=== PATIENT | female | born 1960 | race African-American/Black ===

== ENCOUNTER 2019-07-31 09:46 | Emergency (ER) | payer MEDICAID ==
[~2019-07-31] VITALS: Ht 154.9 cm; Wt 79.3 kg
[2019-07-31 10:25] VITALS: BP 144/98
[2019-07-31] MEDS ORDERED: acetaminophen w/codeine (30MG) #3 tablet PO ONE (11:00)
[2019-07-31] MEDS ORDERED: ACET-3068 PO (11:07)
[2019-07-31] MEDS ORDERED: IBUP-1984 PO (11:07)
== END 2019-07-31 12:45 | disposition home or self-care (01) ==
LOC: ER 09:46
DX: J11.1 Influenza due to unidentified influenza virus with other respiratory manifestations (principal); B34.9 Viral infection, unspecified; F17.200 Nicotine dependence, unspecified, uncomplicated; Z98.890 Other specified postprocedural states; Z88.8 Allergy status to other drugs, medicaments and biological substances; Z79.899 Other long term (current) drug therapy
CPT/HCPCS: 71046; 87502; 87503; 99284

== ENCOUNTER 2020-10-11 19:57 | Emergency (ER) | payer MEDICAID ==
[~2020-10-11] VITALS: Ht 165.1 cm; Wt 77.3 kg
[2020-10-11 20:19] VITALS: BP 171/97
--- NOTE | 2020-10-11 21:14 | NUR ---
PT IS 60 YO FEMALE C/O LEFT LOWER BACK PAIN AND RASH X1 ONE WEEK, BLISTERS ON RASH X1 DAY, PAIN 7/10, WAITING TO BE EVALUATED BY PROVIDER
[2020-10-11] MEDS ORDERED: GABA-530 PO (21:41)
[2020-10-11] MEDS ORDERED: VALA100031 PO (21:41)
== END 2020-10-11 22:02 | disposition home or self-care (01) ==
LOC: ER 19:58
DX: B02.9 Zoster without complications (principal); Z98.890 Other specified postprocedural states; Z88.6 Allergy status to analgesic agent; Z79.2 Long term (current) use of antibiotics; Z79.899 Other long term (current) drug therapy
CPT/HCPCS: 99283

== ENCOUNTER 2020-12-31 12:18 | Emergency (ER) | payer BC, MEDICAID ==
[~2020-12-31] VITALS: Ht 162.6 cm; Wt 78.2 kg
[~2020-12-31 12:18] MED LIST: GABA-530 PO; VALA100031 PO
[2020-12-31 12:59] VITALS: BP 160/107
[2020-12-31] MEDS ORDERED: PRED20TA PO (13:56)
[2020-12-31] MEDS ORDERED: DIPH-423 PO (13:56)
== END 2020-12-31 14:15 | disposition home or self-care (01) ==
LOC: ER 12:19
DX: S60.562A Insect bite (nonvenomous) of left hand, initial encounter (principal); S60.561A Insect bite (nonvenomous) of right hand, initial encounter; S40.862A Insect bite (nonvenomous) of left upper arm, initial encounter; S40.861A Insect bite (nonvenomous) of right upper arm, initial encounter; Z88.6 Allergy status to analgesic agent; Z79.899 Other long term (current) drug therapy; W57.XXXA Bitten or stung by nonvenomous insect and other nonvenomous arthropods, initial encounter; Y93.89 Activity, other specified; Y92.89 Other specified places as the place of occurrence of the external cause; Y99.8 Other external cause status
CPT/HCPCS: 99283

== ENCOUNTER 2022-07-17 14:58 | Emergency (ER) | payer BC ==
[~2022-07-17] VITALS: Ht 165.1 cm; Wt 69.5 kg
[~2022-07-17 14:58] MED LIST changes: +DIPH-423 PO
[2022-07-17 15:47] VITALS: BP 168/103
[2022-07-17] MEDS ORDERED: cyclobenzaprine 10mg tablet PO ONE (17:25)
[2022-07-17] MEDS ORDERED: ketorolac trometh inj. 60 MG/2 ML VIAL IM ONE (17:25)
[2022-07-17] MEDS ORDERED: CYCL-1 PO (17:29)
[2022-07-17] MEDS ORDERED: IBUP-1986 PO (17:29)
[2022-07-17] MEDS ORDERED: LIDO700A32 TOP (17:29)
[2022-07-17] MEDS ORDERED: ketorolac trometh. 30mg/ml inj. IM ONE (17:40)
[2022-07-18] MEDS ORDERED: TRAM50TA2 PO (20:20)
== END 2022-07-17 18:20 | disposition home or self-care (01) ==
LOC: ER 14:59
DX: S29.012A Strain of muscle and tendon of back wall of thorax, initial encounter (principal); Z88.6 Allergy status to analgesic agent; Z88.1 Allergy status to other antibiotic agents; Z88.8 Allergy status to other drugs, medicaments and biological substances; X58.XXXA Exposure to other specified factors, initial encounter; Y93.89 Activity, other specified; Y92.89 Other specified places as the place of occurrence of the external cause; Y99.8 Other external cause status
CPT/HCPCS: 96372; 99283; J1885

== ENCOUNTER → 2022-07-18 | Emergency (ER) | payer BC ==
[~2022-07-18] VITALS: Ht 165.1 cm; Wt 68.0 kg
[~2022-07-18] MED LIST changes: +CYCL-1 PO; +IBUP-1986 PO; +LIDO700A32 TOP; +TRAM50TA2 PO; +traMADol 50MG tablet PO ONE
[2022-07-18 17:43] VITALS: BP 161/100
== END | disposition home or self-care (01) ==
LOC: ER 17:39
DX: S29.012D Strain of muscle and tendon of back wall of thorax, subsequent encounter (principal); R07.89 Other chest pain; M79.18 Myalgia, other site; Z72.89 Other problems related to lifestyle; Z88.1 Allergy status to other antibiotic agents; Z79.899 Other long term (current) drug therapy; Z87.442 Personal history of urinary calculi; X58.XXXD Exposure to other specified factors, subsequent encounter
CPT/HCPCS: 99283

== ENCOUNTER 2022-11-27 13:38 | Emergency (ER) | payer BC ==
[~2022-11-27] VITALS: Ht 162.6 cm; Wt 54.5 kg
[~2022-11-27 13:38] MED LIST changes: -TRAM50TA2 PO; -traMADol 50MG tablet PO ONE
[2022-11-27 13:45] VITALS: BP 141/86
== END 2022-11-27 13:59 | disposition home or self-care (01) ==
LOC: ER 13:39
DX: Z04.89 Encounter for examination and observation for other specified reasons (principal); Z88.5 Allergy status to narcotic agent
CPT/HCPCS: 99281

== ENCOUNTER 2023-01-26 06:06 | Emergency (ER) | payer BC, MEDICAID ==
[~2023-01-26] VITALS: Ht 162.6 cm; Wt 65.9 kg
[2023-01-26 06:58] VITALS: BP 161/96; PULSE 75; RESP 17; TEMP 98.2; O2SAT 99
[2023-01-26] MEDS ORDERED: dexamethasone sod phosphate 10mg/ml inj PO STA (07:49)
[2023-01-26] MEDS ORDERED: AZIT-164 PO (07:54)
== END 2023-01-26 08:45 | disposition home or self-care (01) ==
LOC: ER 06:07
DX: J40 Bronchitis, not specified as acute or chronic (principal); Z20.822 Contact with and (suspected) exposure to COVID-19; F17.200 Nicotine dependence, unspecified, uncomplicated; Z72.89 Other problems related to lifestyle; Z98.890 Other specified postprocedural states; Z88.8 Allergy status to other drugs, medicaments and biological substances; Z79.899 Other long term (current) drug therapy
CPT/HCPCS: 36415; 87502; 87503; 87811; 99283; J1100

== ENCOUNTER 2023-06-05 10:30 | Emergency (ER) | payer BC, MEDICAID ==
[~2023-06-05] VITALS: Ht 165.1 cm; Wt 75.2 kg
[2023-06-05 10:36] VITALS: BP 131/80; PULSE 74; RESP 16; TEMP 98.4; O2SAT 99
[2023-06-05 10:59] LABS: BILIRUBIN,URINE NEGATIVE (Neg); CLARITY,URINE SLIGHTLY CLOUDY (Clear); COLOR,URINE YELLOW (Yellow); GLUCOSE, URINE NEGATIVE (Neg); KETONES,URINE NEGATIVE (Neg); LEUKOCYTE ESTERASE ,URINE TRACE (Neg); NITRITES, URINE NEGATIVE (Neg); OCCULT BLOOD,URINE NEGATIVE (Neg); PH,URINE 5.5 (4.8-8.0); PROTEIN,URINE NEGATIVE (Neg); UROBILINOGEN,URINE 0.2 E.U/dL (0.2-1.0)
[2023-06-05 11:02] LABS: UA COLLECTION TYPE CLN CATCH MIDSTREAM
[2023-06-05 11:07] LABS: SQUAMOUS EPITHELIAL CELL,UR MANY /LPF (FEW)
[2023-06-05 11:10] LABS: MEAN CORPUSCULAR HGB CONC 33.5 g/dL (33.0-36.5); RED BLOOD COUNT 4.98 X10'6 (4.20-5.60); WHITE BLOOD COUNT 9.7 X10'3 (4.5-11.0)
[2023-06-05 11:12] LABS: BASOPHILS % (AUTO) 0.3 % (0-1); EOSINOPHILS % (AUTO) 0.4 % (0-6); HEMATOCRIT 41.9 % (35.0-45.0); LYMPHOCYTES # (AUTO) 2.2 X10'3 (1.1-4.8); LYMPHOCYTES % (AUTO) 22.8 % (21-51); MEAN CORPUSCULAR HEMOGLOBIN 28.2 PG (27.0-31.0); MEAN CORPUSCULAR VOLUME 84.2 FL (78-98); MEAN PLATELET VOLUME 7.5 FL (7.4-10.4); MONOCYTES # (AUTO) 0.6 X10'3 (0-0.9); MONOCYTES % (AUTO) 6.4 % (2-12); NEUTROPHILS # (AUTO) 6.8 X10'3 (1.8-7.7); NEUTROPHILS % (AUTO) 70.1 % (42-75); PLATELET COUNT 273 X10'3 (140-440); RED CELL DISTRIBUTION WIDTH 13.2 % (11.5-14.5)
[2023-06-05 11:13] LABS: BACTERIA,URINE FEW /HPF (Neg); RBC,URINE 0-2 /HPF (0-2)
[2023-06-05 11:15] LABS: MUCUS STRANDS FEW /LPF (Neg)
[2023-06-05 11:17] LABS: COARSE GRANULAR CAST 0-3 /LPF (NEGATIVE)
[2023-06-05 11:26] LABS: ALANINE AMINOTRANSFERASE 51 U/L (12-78); ALBUMIN 3.8 G/DL (3.4-5.0); ALBUMIN/GLOBULIN RATIO 0.8 (1.1-1.5); ALKALINE PHOSPHATASE 66 IU/L (46-116); ANION GAP 10 (8-16); ASPARTATE AMINO TRANSFERASE 34 U/L (10-37); BILIRUBIN,TOTAL 0.4 MG/DL (0.1-1.0); BLOOD UREA NITROGEN 17 MG/DL (7-18); BUN/CREATININE RATIO 23.3 (10.0-20.0); CALCIUM 9.3 MG/DL (8.5-10.1); CHLORIDE 105 MMOL/L (99-107); CREATININE 0.73 MG/DL (0.40-0.90); GLUCOSE 109 MG/DL (70-104); LIPASE 61 U/L (16-77); POTASSIUM 3.6 MMOL/L (3.5-5.1); SODIUM 138 MMOL/L (135-145); TOTAL CARBON DIOXIDE 22.7 MMOL/L (24-32); TOTAL PROTEIN 8.3 G/DL (6.4-8.2); eCRCL 70 ML/MIN; eGFR > 90 ML/MIN
[2023-06-05 15:20] LABS: URINE HCG NEGATIVE (NEG)
== END 2023-06-05 14:14 | disposition left against medical advice (07) ==
LOC: ER 10:30
DX: R11.2 Nausea with vomiting, unspecified (principal); Z53.21 Procedure and treatment not carried out due to patient leaving prior to being seen by health care provider
CPT/HCPCS: 36415; 80053; 81001; 81025; 83690; 85025; 99281